=== PATIENT | male | born 1990 | race African-American/Black ===

== ENCOUNTER 2022-03-17 08:04 | Emergency (ER) | payer SELFPAY ==
[2022-03-17 08:05] VITALS: BP 124/75; PULSE 82; RESP 16; TEMP 36.7; O2SAT 99; BMI 21.9
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
--- NOTE | 2022-03-17 08:15 | CRLHL7_ITS ---
For Patients: As a result of the Century Cures Act, medical imaging exams and procedure reports are released immediately into your electronic medical record. You may view this report before your referring provider. If you have questions, please contact your health care provider. Indication: Injury and pain Technique: Left elbow 3 views Comparison: None Findings: Bones: Alignment is normal. No fractures or bone lesions. Joint spaces: Unremarkable. No sign of joint effusion. Soft tissues: Unremarkable. Impression: No sign of acute injury. Dictated by Swapnil Hung MD @ 03/17/2022 9:02:29 AM (Electronically Signed)
[2022-03-17 08:21] LABS: Basophils Absolute Auto 0.05 K/uL (0.00-0.30); Basophils Percent Auto 0.7 % (0.0-3.0); Eosinophils Absolute Auto 0.07 K/uL (0.00-0.50); Hemoglobin* 16.5 gm/dL (13.5-17.5); Immature Granulocytes Abs Auto 0.01 K/uL (0.00-0.30); Lymphocytes Absolute Auto 1.64 K/uL (0.90-2.90); Lymphocytes Percent Auto 23.1 % (20-44); Mean Corpuscular HGB Conc 35 gm/dL (32-36); Mean Corpuscular Hemoglobin 32 pg (26-34); Mean Corpuscular Volume 91 fL (80-100); Monocytes Percent Auto 7.7 % (0.0-11.0); Neutrophils Absolute Auto 4.78 K/uL (1.7-7.0); Neutrophils Percent Auto 67.4 % (42.0-72.0); Platelet Count* 248 K/uL (140-440); RDW Coefficient of Variation % 11.6 % (11.5-15.5); Red Blood Count 5.14 m/uL (4.30-5.90)
[2022-03-17 08:28] LABS: Appearance Urine Clear (Clear); Bilirubin Urine Negative (Negative); Blood Urine Negative (Negative); Color Urine Yellow (Yellow); Glucose Urine Negative (Negative); Ketones Urine Negative (Negative); Leukocyte Esterase Urine Negative (Negative); Nitrite Urine Negative (Negative); Protein Urine Negative (Negative); Specific Gravity Urine <= 1.005 (1.000-1.030); Urobilinogen Urine 0.2 (0.2-1.0)
[2022-03-17 08:31] LABS: Slide Review Reflex No
[2022-03-17 08:33] LABS: Albumin* 4.8 g/dL (3.3-5.0); Chloride* 107 mmol/L (96-114); Potassium* 3.9 mmol/L (3.6-5.1); Sodium* 142 mmol/L (135-149)
[2022-03-17 08:34] LABS: Amphetamine Screen Urine Negative (Negative); Barbiturate Screen Urine Negative (Negative); Benzodiazepines Screen Urine Negative (Negative); Cocaine Screen Urine Negative (Negative); Methadone Screen Urine Negative (Negative); Methamphetamines Screen Urine Negative (Negative); Opiate Screen Urine Negative (Negative); Oxycodone Screen Urine Negative (Negative); Phencyclidine Screen Urine Negative (Negative); Tricyclic Antidepressant Urine Negative (Negative)
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
[2022-03-17 08:35] LABS: RBC Urine 0-2 (0-2); WBC Urine 0-2 (0-5)
[2022-03-17 08:36] LABS: Alanine Aminotransferase* 13 U/L (4-50); Alkaline Phosphatase* 69 U/L (40-150); Aspartate Amino Transferase* 30 U/L (12-35); Blood Urea Nitrogen* 8 mg/dL (5-24); Calcium* 8.9 mg/dL (8.4-10.6); Carbon Dioxide* 24 mmol/L (20-32); Creatinine* 0.8 mg/dL (0.5-1.5); Est. Creatinine Clearance* 122.38; Estimated Glomerular Filt Rate 123 ml/min; Glucose* 85 mg/dL (60-115); Total Protein* 8.1 g/dL (6.0-8.3)
[2022-03-17 08:37] LABS: Ethanol* 0.12 % (0.01-0.03)
[2022-03-17 08:38] LABS: Cannabinoid Screen Urine POSITIVE (Negative)
[2022-03-17 08:40] VITALS: BP 133/82; PULSE 75; RESP 16; O2SAT 99
[2022-03-17 08:50] VITALS: BP 133/80; PULSE 78; RESP 16; O2SAT 99
[2022-03-17 09:00] VITALS: BP 133/75; PULSE 73; RESP 16; O2SAT 99
[2022-03-17 09:10] VITALS: BP 139/81; PULSE 90; RESP 16; O2SAT 97
[2022-03-17 09:20] VITALS: BP 135/84; PULSE 90; RESP 16; O2SAT 99
[2022-03-17] MEDS: LIDOCAINE 0.5%-EPI 1:200,000 50 ML VIAL INJECTION (09:45)
[2022-03-17] MEDS: TETANUS/DIPHTH/PERTUSSIS 0.5 ML SYRINGE IM (10:07)
== END 2022-03-17 10:14 | disposition home or self-care (01) ==
PROVIDERS: Emergency Provider Family Medicine
DX: S00.83XA Contusion of other part of head, initial encounter (principal); S51.811A Laceration without foreign body of right forearm, initial encounter; V49.3XXA Car occupant (driver) (passenger) injured in unspecified nontraffic accident, initial encounter
CPT/HCPCS: 12001; 36415; 70450; 71046; 73080; 76604; 76705; 80053; 80306; 81001; 82077; 85025; 90471; 90715; 93308; 99284; 99285; 99291; A0425; A0427; G0390